=== PATIENT | female | born 1990 | race Caucasian/White ===

== ENCOUNTER → 2018-07-16 | Outpatient (CLI) | payer MEDICAID | LOC: COL.RAD 08:46 | DX: H93.13 Tinnitus, bilateral (principal); R51 Headache | CPT/HCPCS: A9585 ==

== ENCOUNTER → 2018-08-01 | Outpatient (CLI) | payer MEDICAID | LOC: COL.CARD 09:46 | DX: H93.13 Tinnitus, bilateral (principal); R51 Headache; Z86.69 Personal history of other diseases of the nervous system and sense organs ==

== ENCOUNTER → 2019-01-28 | Outpatient (CLI) | payer MEDICAID | LOC: COL.RAD 11:52 | DX: Q04.6 Congenital cerebral cysts (principal); H93.19 Tinnitus, unspecified ear | CPT/HCPCS: A9585 ==

== ENCOUNTER 2019-02-13 14:40 | Emergency (ER) | payer MEDICAID ==
[~2019-02-13] VITALS: Ht 157.5 cm; Wt 63.6 kg
[2019-02-13 14:44] VITALS: TEMP 98.5
[2019-02-13] MEDS ORDERED: TRUVADA PO (14:45)
[2019-02-13] MEDS ORDERED: MULTI VITAMINS1 TAB PO (14:46)
[2019-02-13 17:04] VITALS: BP 101/66; PULSE 87
[2019-02-13 17:10] LABS: BASO % 0.5 % (0.0-2.0); EOS # 0.4 (0.0-0.7); EOS % 6.8 % (0-4.0); GRAN # 3.4 (1.4-6.5); GRAN % 60.2 % (42.2-75.2); HEMATOCRIT 39.2 % (37.0-47.0); HEMOGLOBIN 13.1 g/dl (12.5-16.0); LYMPH # 1.3 (1.2-3.4); LYMPH % 22.8 % (20.0-51.0); MEAN CELL VOLUME 92 fl (80.0-100.0); MEAN CORPUSCULAR HEMOGLOBIN 31 pg (27.0-31.0); MEAN CORPUSCULAR HGB CONC 33 g/dl (33.0-37.0); MEAN PLATELET VOLUME 9.6 fl (7.4-10.4); MONO # 0.5 (0.1-0.6); MONO % 9.3 % (1.7-9.3); PLATELET COUNT 186 K/mm3 (130-400); RED BLOOD COUNT 4.27 M/mm3 (4.10-5.30); REDCELL DISTRIBUTION WIDTH-CV 12.9 % (11.5-14.5)
[2019-02-13 17:16] LABS: ALBUMIN 3.9 gm/dL (3.5-5.0); BILIRUBIN,TOTAL 0.3 mg/dL (0.0-1.0); CALCIUM 8.1 mg/dL (8.4-10.2); CREATININE, serum 0.6 (0.52-1.25); POTASSIUM 3.8 mmol/L (3.4-5.0)
== END 2019-02-13 18:28 | disposition home or self-care (01) ==
LOC: COL.ER 14:40
PROVIDERS: Physician Assistant
DX: R51 Headache (principal); Z90.89 Acquired absence of other organs
CPT/HCPCS: J1200; J1885; J2550; J7030

== ENCOUNTER → 2019-04-03 | Outpatient (CLI) | payer MEDICAID ==
[~2019-04-03] MED LIST: MULTI VITAMINS1 TAB PO; TRUVADA PO
== END ==
LOC: COL.RAD 07:32
DX: R22.2 Localized swelling, mass and lump, trunk (principal)

== ENCOUNTER → 2019-09-08 | Outpatient (CLI) | payer MEDICAID | LOC: COL.RAD 07:11 | DX: C71.9 Malignant neoplasm of brain, unspecified (principal); Z98.890 Other specified postprocedural states | CPT/HCPCS: A9585 ==

== ENCOUNTER → 2020-03-01 | Outpatient (CLI) | payer MEDICAID | LOC: COL.RAD 10:24 | DX: C71.9 Malignant neoplasm of brain, unspecified (principal); Z98.890 Other specified postprocedural states | CPT/HCPCS: A9585 ==

== ENCOUNTER → 2021-02-22 | Outpatient (CLI) | payer MEDICAID | LOC: COL.RAD 07:08 | DX: Z98.890 Other specified postprocedural states (principal); C71.9 Malignant neoplasm of brain, unspecified | CPT/HCPCS: A9585 ==

== ENCOUNTER 2021-06-19 17:06 | Emergency (ER) | payer MEDICAID ==
[~2021-06-19] VITALS: Ht 157.5 cm; Wt 77.3 kg
[2021-06-19 17:24] VITALS: TEMP 98.5
[2021-06-19] MEDS ORDERED: ANTIVERT 25MG25 MG PO (19:25)
[2021-06-19] MEDS ORDERED: ZOFRAN ODT4 MG PO (19:25)
[2021-06-19 19:34] VITALS: BP 132/78; PULSE 76
== END 2021-06-19 19:34 | disposition home or self-care (01) ==
LOC: COL.ER 17:06
DX: U07.1 COVID-19 (principal); S06.0X0A Concussion without loss of consciousness, initial encounter; W01.198A Fall on same level from slipping, tripping and stumbling with subsequent striking against other object, initial encounter

== ENCOUNTER 2022-02-06 08:17 | Emergency (ER) | payer MEDICAID ==
[~2022-02-06] VITALS: Ht 154.9 cm; Wt 77.3 kg
[~2022-02-06 08:17] MED LIST changes: +ANTIVERT 25MG25 MG PO; +ZOFRAN ODT4 MG PO
[2022-02-06 08:30] VITALS: TEMP 98.4
[2022-02-06 09:01] LABS: BASO % 0.8 % (0.0-2.0); EOS # 0.4 K/mm3 (0.0-0.7); EOS % 7.8 % (0.0-4.0); GRAN % 60.3 % (42.2-75.2); HEMATOCRIT 41.9 % (37.0-47.0); HEMOGLOBIN 14.5 g/dl (12.5-16.0); LYMPH # 1.1 K/mm3 (1.2-3.4); LYMPH % 21.5 % (20.0-51.0); MEAN CELL VOLUME 88 fl (80.0-100.0); MEAN CORPUSCULAR HEMOGLOBIN 31 pg (27-31); MEAN CORPUSCULAR HGB CONC 35 g/dl (33.0-37.0); MEAN PLATELET VOLUME 10.4 fl (7.4-10.4); MONO # 0.5 K/mm3 (0.1-0.6); MONO % 9.4 % (1.7-9.3); PLATELET COUNT 187 K/mm3 (130-400); RED BLOOD COUNT 4.74 M/mm3 (4.10-5.30); REDCELL DISTRIBUTION WIDTH-CV 12.6 % (11.5-14.5)
[2022-02-06 09:18] LABS: ALBUMIN 4.1 gm/dL (3.5-5.0); BILIRUBIN,TOTAL 0.8 mg/dL (0.2-1.2); CALCIUM 8.7 mg/dL (8.4-10.2); CREATININE, serum 0.69 mg/dL (0.57-1.11); POTASSIUM 3.9 mmol/L (3.5-4.5); TOTAL PROTEIN 7.4 gm/dL (6.2-8.1)
[2022-02-06 09:50] LABS: COLLECTION METHOD CLEAN CATCH
[2022-02-06] MEDS ORDERED: PEPCID 20MG TAB20 MG PO (09:52)
[2022-02-06 10:27] LABS: MUCOUS Present (NOT PRESENT); URINE BACTERIA None Seen /hpf (NONE SEEN); URINE RBC 0-2 /hpf (0-2)
[2022-02-06 10:32] LABS: URINE APPEARANCE Cloudy (CLEAR/HAZY); URINE COLOR Yellow (YELLOW)
[2022-02-06 10:33] LABS: PH 5.5 (5.0-8.5); URINE BLOOD Negative (NEGATIVE); URINE GLUCOSE Negative (NEGATIVE); URINE KETONE 4+ (NEGATIVE); URINE NITRATE Negative (NEGATIVE); URINE PROTEIN(semi-quant) Negative (NEGATIVE); URINE UROBILINOGEN 0.2 E.U/dL (0.2-1.0)
[2022-02-06 10:54] VITALS: BP 110/73; PULSE 70
== END 2022-02-06 11:00 | disposition home or self-care (01) ==
LOC: COL.ER 08:17
PROVIDERS: Emergency Medicine
DX: R10.13 Epigastric pain (principal); Z32.02 Encounter for pregnancy test, result negative
CPT/HCPCS: J1885; J2405; J7120